=== PATIENT | female | born 1995 | race African-American/Black ===

== ENCOUNTER 2017-04-22 10:16 | Emergency (ER) | payer OTHER ==
[~2017-04-22] VITALS: Ht 190.5 cm; Wt 115.0 kg
[2017-04-22] MEDS ORDERED: DIPH50CA38 PO (10:31)
[2017-04-22] MEDS ORDERED: OLAN10TA19 PO (10:31)
[2017-04-22 10:55] VITALS: BP 147/83
== END 2017-04-22 12:46 | disposition left against medical advice (07) ==
LOC: ER 12:39
DX: Z53.21 Procedure and treatment not carried out due to patient leaving prior to being seen by health care provider (principal)